=== PATIENT | female | born 2005 | race Caucasian/White ===

== ENCOUNTER 2024-11-10 14:55 | Emergency (ER) | payer SELFPAY ==
[2024-11-10] MEDS: Amoxicillin/Clavulanate K 875-125 MG Tab PO ONE (17:10)
== END 2024-11-10 17:11 | disposition home or self-care (01) ==
LOC: MW.ED 14:55
DX: H66.93 Otitis media, unspecified, bilateral (principal); Z86.16 Personal history of COVID-19; Z75.8 Other problems related to medical facilities and other health care
CPT/HCPCS: 99282; A9270